=== PATIENT | male | born 1990 | race Caucasian/White ===

== ENCOUNTER 2018-09-30 12:15 | Emergency (ER) | payer MEDICAID ==
[~2018-09-30] VITALS: Ht 177.8 cm; Wt 84.8 kg
--- NOTE | 2018-09-30 12:15 | NUR ---
PT AMB TO CHAIR B
--- NOTE | 2018-09-30 12:21 | NUR ---
PT MOVED TO BED [address] EVALUATION
--- NOTE | 2018-09-30 12:22 | NUR ---
DR MANJARREZ AT BEDSIDE EVALUATING PT
[2018-09-30 12:27] VITALS: BP 130/100
[2018-09-30] MEDS ORDERED: CLINDAMYCIN 600 MG/4 ML VIAL IM ONE (12:40)
[2018-09-30] MEDS ORDERED: KETOROLAC 30 MG/ML VIAL IM ONE (12:40)
[2018-09-30 13:11] VITALS: BP 126/89
--- NOTE | 2018-09-30 13:12 | NUR ---
Patient discharged with v/s stable. Written and verbal after care instructions given and explained. Patient alert, oriented and verbalized understanding of instructions. with steady gait. All questions addressed prior to discharge. ID band removed. Patient advised to follow up with PMD. Rx of BACTRIM given. Patient educated on indication of medication including possible reaction and side effects. Opportunity to ask questions provided and answered.
== END 2018-09-30 13:12 ==
LOC: MED 12:15
DX: F11.10 Opioid abuse, uncomplicated (principal); L03.116 Cellulitis of left lower limb; L03.115 Cellulitis of right lower limb; L03.114 Cellulitis of left upper limb; L03.113 Cellulitis of right upper limb; L02.416 Cutaneous abscess of left lower limb; L02.415 Cutaneous abscess of right lower limb; L02.512 Cutaneous abscess of left hand; L02.511 Cutaneous abscess of right hand; Z02.89 Encounter for other administrative examinations
CPT/HCPCS: 96372; 99283; J1885; J3490

== ENCOUNTER 2019-01-26 01:48 | Emergency (ER) | payer MEDICAID ==
[~2019-01-26] VITALS: Ht 180.3 cm; Wt 84.4 kg
[2019-01-26 01:49] VITALS: BP 153/71
--- NOTE | 2019-01-26 01:55 | NUR ---
PT [facility] [employer] TO ED FOR PRE-BOOK. PT WAS DIAGNOSED WITH MRSA WOUND BLE 2 WKS AGO. ALSO STATED SIPHYLIS INFECTION, TAKING BACTRIM AND KEFLEX X 4 DAYS. DENIES PMH. PT AAO X4, GCS 15. AMBULATORY WOTH STDEAY GAIT. SKIN WARM AND DRY, NOTED BLE WOUND. VSS, NO ACUTE DISTRESS AT THIS TIME. DR.KURERA MICHEL EAWARE OF PT STATUS. WILL CONTINUE TO MONITOR
[2019-01-26 02:12] VITALS: BP 153/71
--- NOTE | 2019-01-26 02:12 | NUR ---
PATIENT [facility]. PATIENT EXAMINED BY DR. GAMBINO. PATIENT MEDICALLY CLEARED AND RELEASED IN CUSTODY IN STABLE CONDITION. ORIGINAL PRE-BOOK FORM GIVEN TO OFFICER MARTINEZ.
--- NOTE | 2019-01-26 02:12 | NUR ---
Patient discharged with v/s stable. Written and verbal after care instructions given and explained. Patient verbalized understanding. Ambulatory with steady gait. All questions addressed prior to discharge. Advised to follow up with PMD. PT UNDER CUSTODY
== END 2019-01-26 02:12 | disposition home or self-care (01) ==
LOC: MED 01:48
DX: L03.116 Cellulitis of left lower limb (principal); L02.416 Cutaneous abscess of left lower limb; Z02.89 Encounter for other administrative examinations; F17.210 Nicotine dependence, cigarettes, uncomplicated
CPT/HCPCS: 99283

== ENCOUNTER 2019-08-01 18:19 | Emergency (ER) | payer SELFPAY ==
[~2019-08-01] VITALS: Ht 180.3 cm; Wt 87.1 kg
[2019-08-01 18:25] VITALS: BP 152/89
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
[2019-08-01] MEDS ORDERED: NACL 0.9% 1,000 ML IV ONE (18:30)
--- NOTE | 2019-08-01 18:39 | NUR ---
PT REFUSED IV AND BOLUS OF NS. DR CORDERO MADE AWARE
[2019-08-01] MEDS ORDERED: LORazepam 2 MG/ML VIAL IM ONE (18:45)
--- NOTE | 2019-08-01 18:57 | NUR ---
PT REFUSED IM OF ATIVAN. DR CORDERO MADE AWARE
[2019-08-01 19:13] VITALS: BP 152/89
--- NOTE | 2019-08-01 19:13 | NUR ---
Patient does not wish to proceed with medical care recommended by DR CORDERO. Patient given information related to possible complications, up to and including , which could occur as a result of leaving hospital at this time. Patient verbalizes understanding of risks involved leaving against medical advice. Patient has signed AMA form.
== END 2019-08-01 19:13 | disposition left against medical advice (07) ==
LOC: MED 18:19
DX: N50.812 Left testicular pain (principal); N50.811 Right testicular pain; Z53.29 Procedure and treatment not carried out because of patient's decision for other reasons
CPT/HCPCS: 99283